=== PATIENT | male | born 1970 | race Two or more races ===

== ENCOUNTER 2017-11-18 10:04 | Outpatient (CLI) | payer OTHER ==
--- NOTE | 2017-11-18 15:15 | MRI Report ---
EXAM: LEFT KNEE MRI WITHOUT CONTRAST EXAM DATE: 11/18/2017 10:46 AM. CLINICAL HISTORY: Unilateral posttraumatic osteoarthritis. COMPARISON: None. TECHNIQUE: Multiplanar, multisequence T1-weighted and fluid-sensitive sequences of the knee without c ontrast. Other: None. FINDINGS: Bones: No fractures or subluxations. No marrow edema. No bone lesions. Articular Cartilage: Multifocal areas of grade 3-4 chondromalacia primarily at the weightbearing aspe ct of the medial tibial plateau. Some undermining flaps are also identified. Series 501 image 21. There is also some grade 2-3 chondromalacia at the medial patellar facet and also at the patellar ape x. Some grade 3 chondromalacia central weightbearing aspect of the lateral tibial plateau. Medial Meniscus: The medial meniscus is intact. Lateral Meniscus: The lateral meniscus is intact. Cruciate Ligaments: The anterior and posterior cruciate ligaments are intact. Collateral Ligaments: The medial collateral and lateral collateral ligamentous structures are intact. Tendons: The quadriceps, patellar, semimembranosus, and popliteus tendons are unremarkable. Musculature: No edema or fatty atrophy. Other: No effusion. No popliteal cyst. No loose bodies. The medial and lateral retinacula are intact. Significant edema in Hoffa's fat pad.. IMPRESSION: 1. Multifocal areas of grade 3-4 chondromalacia at the weightbearing aspect of the medial tibial plat eau with some underlying articular cartilaginous flaps. Also noted is some grade 2-3 chondromalacia a t the medial patellar facet and patellar apex. Grade 3 chondromalacia at the weightbearing aspect of the lateral tibial plateau. 2. Menisci, cruciates and collaterals appear unremarkable. 3. Some edema in Hoffa's fat pad. [facility] MUSCULOSKE[facility] SECTION Referring Provider Line: [phone] SITE ID: [id number]
== END 2017-11-18 10:05 | disposition home or self-care (01) ==
LOC: DI 10:04
PROVIDERS: ATTEND Orthopaedic Surgery
DX: M94.262 Chondromalacia, left knee (principal)

== ENCOUNTER 2018-02-10 08:00 | Outpatient (CLI) | payer MEDICAID, OTHER ==
[2018-02-10 19:18] LABS: BASOPHILS % (AUTO) 0.5 %; EOSINOPHILS # (AUTO) 0.1 10^3/uL (0.0-0.7); EOSINOPHILS % (AUTO) 1.2 %; HGB - HEMOGLOBIN 13.1 g/dL (14.0-18.0); LYMPHOCYTES % (AUTO) 23.3 %; MEAN CORPUSCULAR HEMOGLOBIN 28.9 pg (27.0-31.0); MEAN CORPUSCULAR HGB CONC 32.4 g/dL (32.0-36.0); MEAN PLATELET VOLUME 9.1 fL (7.4-11.4); MONOCYTES # (AUTO) 0.6 10^3/uL (0.0-1.0); MONOCYTES % (AUTO) 6.4 %; NEUTROPHILS # (AUTO) 5.9 10^3/uL (1.5-6.6); NEUTROPHILS % (AUTO) 68.6 %; PLT - PLATELET COUNT 360 10^3/uL (130-450); RED BLOOD COUNT 4.53 10^6/uL (4.70-6.10); RED CELL DISTRIBUTION WIDTH 13.7 % (12.0-15.0); WHITE BLOOD COUNT 8.6 x10^3/uL (4.8-10.8)
[2018-02-10 19:29] LABS: CREATININE,URINE 60.1 mg/dL; MICROALBUM/CREATININE RATIO,UR 194.7 ug/mg (<30.0); MICROALBUMIN,URINE 11.7 mg/dL (0-300.0)
[2018-02-10 19:33] LABS: HB2 TOTAL 14.6 g/dL; HEMOGLOBIN A1C 1.6 g/dL; HEMOGLOBIN A1C % 12.2 % (4.6-6.2)
[2018-02-10 19:34] LABS: ALBUMIN 4.2 g/dL (3.2-5.5); ALBUMIN/GLOBULIN RATIO 1.3 (1.0-2.2); BILIRUBIN,TOTAL 0.4 mg/dL (0.2-1.0); CREATININE 0.8 mg/dL (0.6-1.2); TOTAL PROTEIN 7.4 g/dL (6.7-8.2)
== END 2018-02-10 08:01 | disposition home or self-care (01) ==
LOC: LAB.N 08:00
PROVIDERS: ATTEND Specialist
DX: E11.65 Type 2 diabetes mellitus with hyperglycemia (principal); I10 Essential (primary) hypertension
CPT/HCPCS: 36415; 80053; 82043; 82570; 83036; 85025

== ENCOUNTER 2018-06-21 15:42 | Emergency (ER) | payer MEDICAID, OTHER ==
[2018-06-21] MEDS ORDERED: DEXAMETHASONE 10 MG/ML VIAL PO STA (16:08)
--- NOTE | 2018-06-21 16:17 | ED Physician Documentation ---
PD HPI CHEST PAIN - Stated complaint Stated Complaint: LT SIDE CHEST/BACK PX - Chief complaint Chief Complaint: Cardiac - History obtained from History obtained from: Patient - History of Present Illness Timing - onset: How many weeks ago (2) Timing - onset during: Rest Timing - duration: Weeks (2) Timing - details: Gradual onset, Still present Quality: Sharp, Pain Location: Left chest Radiation: Back Improved by: Rest Worsened by: Inspiration, Movement, Palpation, Position Associated symptoms: No: Shortness of air, Diaphoresis, Nausea, Vomiting, Feeling faint / dizzy, General Weakness, Palpitations Similar symptoms before: Has not had sx before Recently seen: Other - Additional information Additional information: 47-year-old male with a history of hypertension and diabetes has developed left- sided chest pain. He has had this for about 2 weeks and he has been into see his chiropractor and he appears to have a rib out of place. The patient has chest wall tenderness that reproduces the pain he is having he is having pain radiating from the front to the back and from the back to the front. The patient devout denies diaphoresis or dyspnea associated with this. 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 He states the cart had some problems with his wheels was very difficult to maneuver into position. He has since fix this. He has been doing this for several weeks. He also has a 9-year-old Down syndrome child who we have will frequently have to wrestle to control him. Review of Systems Constitutional: denies: Fever Eyes: denies: Decreased vision Ears: denies: Ear pain Nose: denies: Rhinorrhea / runny nose, Congestion Throat: denies: Sore throat Cardiac: denies: Chest pain / pressure, Palpitations Respiratory: denies: Dyspnea, Cough GI: denies: Abdominal Pain, Nausea, Vomiting : denies: Dysuria, Frequency Skin: denies: Rash Musculoskeletal: reports: Back pain. denies: Neck pain, Extremity pain Neurologic: denies: Generalized weakness, Focal weakness, Numbness PD PAST MEDICAL HISTORY - Past Medical History Cardiovascular: Hypertension, High cholesterol Respiratory: None Endocrine/Autoimmune: Type 2 diabetes HEENT: Other Musculoskeletal: Osteoarthritis, Chronic back pain - Past Surgical History Ortho: ACL reconstruction, Shoulder arthroplasty - Present Medications Home Medications: Ambulatory Orders Medication Instructions Recorded Confirmed Lisinopril 10 mg PO DAILY 06/25/16 06/25/16 Aspirin Chewable [St Alex 06/21/18 06/21/18 Aspirin] Metformin HCl [Metformin HCl] 06/21/18 Tramadol HCl 50 - 100 mg PO Q8HR PRN #20 tablet 06/21/18 - Allergies Allergies/Adverse Reactions: Allergies Allergy/AdvReac Type Severity Reaction Status Date / Time No Known Drug Allergies Allergy Verified 06/21/18 16:10 - Social History Does the pt smoke?: No Smoking Status: Never smoker Does the pt drink ETOH?: Yes Does the pt have substance abuse?: No PD ED PE NORMAL - Vitals Vital signs reviewed: Yes (hypertensive marked) - General General: Alert and oriented X 3, No acute distress, Well developed/nourished - HEENT HEENT: Atraumatic, PERRL, EOMI - Neck Neck: Supple, no meningeal sign, No bony TTP - Cardiac Cardiac: RRR, No murmur - Respiratory Respiratory: No respiratory distress, Clear bilaterally, Other (There is point tenderness to the chest wall posteriorly laterally and anteriorly that reproduces the symptoms the patient is having. ) - Abdomen Abdomen: Soft, Non tender - Back Back: No CVA TTP, No spinal TTP - Derm Derm: Normal color, Warm and dry, No rash - Extremities Extremities: No deformity, No edema - Neuro Neuro: Alert and oriented X 3, wooden fence erector 2-12 intact, No motor deficit, No sensory deficit, Normal speech Eye Opening: Spontaneous Motor: Obeys Commands Verbal: Oriented GCS Score: 15 - Psych Psych: Normal mood, Normal affect Results - Vitals Vitals: Vital Signs - 24 hr 06/21/18 15:47 Temperature 37.0 C Heart Rate 94 Respiratory 20 Rate Blood Pressure 196/110 H O2 Saturation 99 Oxygen O2 Source Room air - EKG (time done) 1552 Rate: Rate (enter#) (86) Rhythm: NSR Ischemia: Normal ST segments, Q waves (inferior) Compare to prior EKG: Old EKG unavailable Computer interpretation: Agree with computer - Labs Labs: Laboratory Tests 06/21/18 06/21/18 06/21/18 16:15 16:15 16:15 WBC 8.4 RBC 4.08 L Hgb 12.3 L Hct 36.2 L MCV 88.5 MCH 30.0 MCHC 33.9 RDW 12.9 Plt Count 352 MPV 7.9 Neut # (Auto) 5.1 Lymph # (Auto) 2.3 [place] # (Auto) 0.6 Eos # (Auto) 0.2 Baso # (Auto) 0.1 Absolute Nucleated RBC 0.00 Nucleated RBC % 0.0 Sodium 133 L Potassium 3.6 Chloride 98 L Carbon Dioxide 29 Anion Gap 6.0 BUN 23 H Creatinine 0.9 Estimated GFR (MDRD) 90 Glucose 244 H Calcium 8.7 Total Bilirubin 0.3 AST 16 ALT 15 Alkaline Phosphatase 114 Troponin I < 0.04 Total Protein 7.4 Albumin 4.0 Globulin 3.4 Albumin/Globulin Ratio 1.2 Lipase 37 - Rads (name of study) 2 veiw chest Radiology: Prelim report reviewed (Impression: 1. No acute disease in the chest.), EMP read indepedently, See rad report PD MEDICAL DECISION MAKING - ED course Complexity details: reviewed results, re-evaluated patient, considered differential, d/w patient ED course: 47 y/o male with left sided chest wall pain is given dexamethasone and he is expected to improve. - Sepsis Event Vital Signs: Vital Signs - 24 hr 06/21/18 15:47 Temperature 37.0 C Heart Rate 94 Respiratory 20 Rate Blood Pressure 196/110 H O2 Saturation 99 Oxygen O2 Source Room air Departure - Departure Disposition: 01 Home, Self Care Clinical Impression: Strain of chest wall Qualifiers: Encounter type: initial encounter Qualified Code(s): S29.011A - Strain of muscle and tendon of front wall of thorax, initial encounter Condition: Stable Instructions: ED Strain Chest Wall Ch Follow-Up: BRENDA BREWER [Primary Care Provider] - Prescriptions: Tramadol HCl 50 - 100 mg PO Q8HR PRN #20 tablet PRN Reason: Pain
[2018-06-21 16:22] LABS: BASOPHILS # (AUTO) 0.1 10^3/uL (0.0-0.1); BASOPHILS % (AUTO) 0.8 %; EOSINOPHILS # (AUTO) 0.2 10^3/uL (0.0-0.7); EOSINOPHILS % (AUTO) 2.9 %; HGB - HEMOGLOBIN 12.3 g/dL (14.0-18.0); LYMPHOCYTES # (AUTO) 2.3 10^3/uL (1.5-3.5); LYMPHOCYTES % (AUTO) 27.9 %; MEAN CORPUSCULAR HGB CONC 33.9 g/dL (32.0-36.0); MEAN CORPUSCULAR VOLUME 88.5 fL (80.0-94.0); MEAN PLATELET VOLUME 7.9 fL (7.4-11.4); MONOCYTES # (AUTO) 0.6 10^3/uL (0.0-1.0); MONOCYTES % (AUTO) 7.1 %; NEUTROPHILS # (AUTO) 5.1 10^3/uL (1.5-6.6); NEUTROPHILS % (AUTO) 61.3 %; PLT - PLATELET COUNT 352 10^3/uL (130-450); RED BLOOD COUNT 4.08 10^6/uL (4.70-6.10); RED CELL DISTRIBUTION WIDTH 12.9 % (12.0-15.0); WHITE BLOOD COUNT 8.4 x10^3/uL (4.8-10.8)
[2018-06-21 16:34] LABS: ALBUMIN/GLOBULIN RATIO 1.2 (1.0-2.2); BILIRUBIN,TOTAL 0.3 mg/dL (0.2-1.0); CALCIUM 8.7 mg/dL (8.5-10.3); CREATININE 0.9 mg/dL (0.6-1.2); TOTAL PROTEIN 7.4 g/dL (6.7-8.2)
--- NOTE | 2018-06-21 16:45 | XRAY Report ---
Reason: left sided chest pain Procedure Date: 06/21/2018 Accession Number: [id number] / [id number] Procedure: XR - Chest 2 View X-Ray CPT Code: 16576 FULL RESULT: EXAM: CHEST RADIOGRAPHY EXAM DATE: 06/21/2018 04:35 PM. CLINICAL HISTORY: Left-sided rib and back pain. Chest pain. COMPARISON: None. TECHNIQUE: 2 views. FINDINGS: Lungs/Pleura: No focal opacities evident. No pleural effusion. No pneumothorax. Normal volumes. Mediastinum: Heart size is normal. Aorta is mildly tortuous. Other: Degenerative changes of the thoracic spine. No acute osseous abnormalities. IMPRESSION: 1. No acute disease in the chest. [facility]
[2018-06-21 17:29] VITALS: BP 181/98
== END 2018-06-21 17:29 | disposition home or self-care (01) ==
LOC: ED 15:42
DX: S29.011A Strain of muscle and tendon of front wall of thorax, initial encounter (principal); I10 Essential (primary) hypertension; E11.9 Type 2 diabetes mellitus without complications; Z79.84 Long term (current) use of oral hypoglycemic drugs
CPT/HCPCS: 36415; 71046; 80053; 83690; 84484; 85025; 93005; 99283

== ENCOUNTER 2018-10-26 13:37 | Outpatient (CLI) | payer MEDICAID ==
--- NOTE | 2018-10-27 01:41 | XRAY Report ---
Reason: SCIATICA RIGHT SIDE, RADICULOPATHY, CERVICAL REGIO Procedure Date: 10/26/2018 Accession Number: [id number] / [id number] Procedure: XR - Cervical Spine Complete CPT Code: FULL RESULT: EXAM: CERVICAL SPINE RADIOGRAPHY EXAM DATE: 10/26/2018 03:19 PM. CLINICAL HISTORY: SCIATICA RIGHT SIDE, RADICULOPATHY, CERVICAL REGIO. COMPARISONS: None. TECHNIQUE: 5 views. FINDINGS: Alignment: Normal. No spondylolisthesis or scoliosis. Bones: The cervical vertebral bodies and posterior elements are well-visualized from the skull base through C7-T1. No fractures or bone lesions. Disks: Mild degenerative disk disease. Facets: Mild facet arthropathy. Neural Foramina: Mild right osseous neural foraminal narrowing at C5-6. Soft Tissues: Normal. No prevertebral soft tissue swelling. The visualized lung apices are clear. IMPRESSION: Mild degenerative changes. [facility]
--- NOTE | 2018-10-27 01:45 | XRAY Report ---
Reason: SCIATICA RIGHT SIDE, RADICULOPATHY, CERVICAL REGIO Procedure Date: 10/26/2018 Accession Number: [id number] / [id number] Procedure: XR - Lumbar Spine 2 View CPT Code: FULL RESULT: EXAM: LUMBOSACRAL SPINE RADIOGRAPHY EXAM DATE: 10/26/2018 03:26 PM. CLINICAL HISTORY: SCIATICA RIGHT SIDE, RADICULOPATHY, CERVICAL REGIO. COMPARISONS: None. TECHNIQUE: 3 views. FINDINGS: Alignment: Mild degenerative dextroscoliosis. Bones: Five [id number] lumbar vertebral bodies are present. No fractures or bone lesions. Disks: Mild degenerative disk disease. Facets: Moderate facet arthropathy. Sacroiliac Joints: Unremarkable. Soft Tissues: Normal. The visualized bowel gas pattern is normal. IMPRESSION: Degenerative changes. No evidence of acute fracture. [facility]
== END 2018-10-26 13:38 | disposition home or self-care (01) ==
LOC: DI 13:37
PROVIDERS: ATTEND Family Medicine
DX: M51.17 Intervertebral disc disorders with radiculopathy, lumbosacral region (principal); M41.86 Other forms of scoliosis, lumbar region; M50.10 Cervical disc disorder with radiculopathy, unspecified cervical region; M50.00 Cervical disc disorder with myelopathy, unspecified cervical region
CPT/HCPCS: 72050; 72100

== ENCOUNTER 2019-09-01 12:35 | Outpatient (CLI) | payer MEDICAID | END 2019-09-01 12:36 | disposition critical access hospital (66) | LOC: EMS 12:35 | PROVIDERS: ATTEND Surgery | DX: I10 Essential (primary) hypertension (principal); H53.2 Diplopia; R73.09 Other abnormal glucose | CPT/HCPCS: A0425; A0429; A0999 ==

== ENCOUNTER 2019-09-01 12:52 | Emergency (ER) | payer MEDICAID ==
--- NOTE | 2019-09-01 13:01 | ED Physician Documentation ---
History of Present Illness - Stated complaint Stated Complaint: HIGH BLOOD PRESSURE - Additonal information Additional information: This is a 48-year-old male with a history of hypertension, Diabetes, who was sent in from his primary care's office for hypertension high blood sugar and double vision. Patient is typically on metformin and hydrochlorothiazide, he states that he took a 1 month prescription and is try to stretch out for over 4 months. He is only taking his blood pressure medications and metformin when he is feeling poorly oriented starts to develop symptoms such as blurry vision or headache. He went in to see his primary care today is found to have a blood sugar over 400, hypertension over 200 systolic, is complaining of some blurry vision. Patient states of her last week when he looks to the right he has some double vision. When he looks the left his vision seems normal to him. Denies any change in visual acuity. He states this happened before and resolved spontaneously once he got his blood sugar and high blood pressure under control. He denies any weakness, numbness, slurred speech, confusion. Review of Systems Constitutional: denies: Fever Eyes: reports: Other (Vision change) Ears: denies: Loss of hearing Nose: denies: Rhinorrhea / runny nose Cardiac: denies: Chest pain / pressure Respiratory: denies: Dyspnea GI: denies: Abdominal Pain : denies: Dysuria Skin: denies: Rash PD PAST MEDICAL HISTORY - Past Medical History Cardiovascular: Hypertension, High cholesterol Respiratory: None Endocrine/Autoimmune: Type 2 diabetes HEENT: Other Musculoskeletal: Osteoarthritis, Chronic back pain - Past Surgical History Ortho: ACL reconstruction, Shoulder arthroplasty - Present Medications Home Medications: Ambulatory Orders Medication Instructions Recorded Confirmed Aspirin Chewable [St Alex 81 mg DAILY 06/21/18 09/01/19 Aspirin] Metformin HCl 1,000 mg BID 06/21/18 09/01/19 Acetaminophen/Cod 300/30 [Tylenol 1 tab Q6H PRN 09/01/19 09/01/19 #3] Blood Sugar Diagnostic [Glucometer 1 each MC TID #30 strip 09/01/19 Strips] Blood-Glucose Meter [Glucometer] 1 each MC DAILY #1 each 09/01/19 Gabapentin 600 mg PO TID 09/01/19 09/01/19 Hydrochlorothiazide 12.5 mg DAILY 09/01/19 09/01/19 Hydrochlorothiazide 25 mg PO DAILY #30 tablet 09/01/19 Insulin Glargine [Lantus Solostar] 20 unit SQ DAILY #1 pen 09/01/19 Losartan [Cozaar] 50 mg PO DAILY #30 tablet 09/01/19 metFORMIN [Glucophage] 500 mg PO BIDWM #60 tablet 09/01/19 - Allergies Allergies/Adverse Reactions: Allergies Allergy/AdvReac Type Severity Reaction Status Date / Time No Known Drug Allergies Allergy Verified 09/01/19 13:10 - Social History Does the pt smoke?: No Smoking Status: Never smoker Does the pt drink ETOH?: Yes Does the pt have substance abuse?: No PD ED PE NORMAL - Vitals Vital signs reviewed: Yes - General General: Alert and oriented X 3, No acute distress - HEENT HEENT: PERRL - Neck Neck: Supple, no meningeal sign - Cardiac Cardiac: RRR, No murmur - Respiratory Respiratory: No respiratory distress, Clear bilaterally - Abdomen Abdomen: Normal bowel sounds, Soft, Non tender, Non distended - Derm Derm: Warm and dry - Extremities Extremities: No deformity - Neuro Neuro: Alert and oriented X 3, No sensory deficit, Normal speech, Other (With rightward gaze patient has slightly limited lateral gaze of the right eye. Left eye has normal EOM. He has normal and symmetric eye movements with both eyes when looking to the left up-and-down. Face is symmetric with smile and eye closing, sensation intact light touch over the entire face. Tongue protrudes in the midline. Hearing is symmetric with finger rub. Shoulder shrug is equal strength bilaterally. Strength is 5 out of 5 with hand squeeze, elbow flexion extension shoulder abduction, knee extension and flexion, ankle dorsiflexion and plantarflexion. No dysmetria.) - Psych Psych: Normal mood, Normal affect Results - Vitals Vitals: Oxygen O2 Source Room air - Labs Labs: Laboratory Tests 09/01/19 09/01/19 13:52 13:52 WBC 9.0 RBC 4.63 L Hgb 13.6 L Hct 41.2 L MCV 89.0 MCH 29.4 MCHC 33.0 RDW 13.2 Plt Count 335 MPV 10.6 Neut # (Auto) 6.0 Lymph # (Auto) 2.1 [place] # (Auto) 0.7 Eos # (Auto) 0.1 Baso # (Auto) 0.1 Absolute Nucleated RBC 0.00 Nucleated RBC % 0.0 Sodium 132 L Potassium 3.8 Chloride 97 L Carbon Dioxide 28 Anion Gap 7.0 BUN 16 Creatinine 0.8 Estimated GFR (MDRD) 103 Glucose 366 H Calcium 9.0 Total Bilirubin 0.6 AST 20 ALT 22 Alkaline Phosphatase 139 H Total Protein 8.5 H Albumin 4.2 Globulin 4.3 H Albumin/Globulin Ratio 1.0 Lipase 33 PD MEDICAL DECISION MAKING - ED course ED course: Pt has an isolated abducens palsy, likely caused by his HTN and DM, which are very poorly controlled. No other neuro findings or symptoms. His palsy symptoms have been present for a week. I discussed that if this does not improve or if her has ANY other neuro symptoms he needs to return to the ED for head imaging. It sounds like he has actually had this in the past and it spontaneously resolved. Regarding his HTN, he is asymptomatic with no chest pain, shortness of breath. He was given lisinopril here and his BP downtrended to <200 systolic on my recheck prior to discharge. Given he is asymptomatic Further aggressive dropping of his BP in the ED is not indicated. Labs show elevated BG in the 300s, no anion gap, normal bicarb. I spoke with Dr. Ji, discussed the patient's labs and the plan of care, for outpatient management he recommends 20 units of Lantus daily subcutaneously, metformin 500 mg twice daily, losartan 50 mg daily, and his current dose of hydrochlorothiazide. He would like the patient to be seen in his office and 24 to 48 hours for a recheck. These medications were prescribed and plan of care reviewed and patient was discharged home. Departure - Departure Disposition: Home, Self Care Clinical Impression: Abducens nerve palsy Qualifiers: Laterality: right Qualified Code(s): H49.21 - Sixth [abducent] nerve palsy, right eye Diabetes Qualifiers: Diabetes mellitus type: type 2 Diabetes mellitus terminal operations supervisor insulin use: without terminal operations supervisor use Diabetes mellitus complication status: with other specified complication Qualified Code(s): E11.69 - Type 2 diabetes mellitus with other specified complication Condition: Good Follow-Up: Reji Ji [Primary Care Provider] - (Within 48 hours) Prescriptions: Blood Sugar Diagnostic [Glucometer Strips] 1 each TID #30 strip Blood-Glucose Meter [Glucometer] 1 each DAILY #1 each Hydrochlorothiazide 25 mg PO DAILY #30 tablet Insulin Glargine [Lantus Solostar] 20 unit SQ DAILY #1 pen Losartan [Cozaar] 50 mg PO DAILY #30 tablet metFORMIN [Glucophage] 500 mg PO BIDWM #60 tablet Comments: Your blood pressure and blood sugar are quite high today, these need to be controlled or you are likely to have severe health problems in the future. I spoke with your doctor and would like you to start long-acting insulin 20 units daily. Please measure your blood sugar at least 3 times a day, and log these values. This will help your doctor adjust doses of your medications going forward. You should also take the metformin 500 mg twice daily, and the losartan for blood pressure daily in addition to your hydrochlorothiazide. Please follow-up with your primary care provider or another health care provider in their office in the next 1 to 2 days, Dr. Ji is expecting this. You do have some paralysis of 1 of the muscles on your right eye (an abducens palsy), which is likely due to the diabetes and high blood pressure, if this is not improving over the next several months you will likely need an MRI. If you develop any other concerning symptoms such as numbness weakness, more vision changes, speech changes, you need to return to the emergency department immediately for more testing. Discharge Date/Time: 09/01/19 17:00
[2019-09-01] MEDS ORDERED: LISINOPRIL 5 MG TABLET PO STA (13:41)
[2019-09-01 14:05] LABS: BASOPHILS # (AUTO) 0.1 10^3/uL (0.0-0.1); EOSINOPHILS # (AUTO) 0.1 10^3/uL (0.0-0.7); EOSINOPHILS % (AUTO) 1.6 %; HGB - HEMOGLOBIN 13.6 g/dL (14.0-18.0); LYMPHOCYTES # (AUTO) 2.1 10^3/uL (1.5-3.5); LYMPHOCYTES % (AUTO) 23.3 %; MEAN CORPUSCULAR HEMOGLOBIN 29.4 pg (27.0-31.0); MEAN PLATELET VOLUME 10.6 fL (7.4-11.4); MONOCYTES # (AUTO) 0.7 10^3/uL (0.0-1.0); MONOCYTES % (AUTO) 7.2 %; NEUTROPHILS % (AUTO) 66.5 %; PLT - PLATELET COUNT 335 10^3/uL (130-450); RED BLOOD COUNT 4.63 10^6/uL (4.70-6.10); RED CELL DISTRIBUTION WIDTH 13.2 % (12.0-15.0)
[2019-09-01 14:30] LABS: CREATININE 0.8 mg/dL (0.6-1.2)
[2019-09-01 14:31] LABS: BILIRUBIN,TOTAL 0.6 mg/dL (0.2-1.0)
[2019-09-01 14:32] LABS: ALBUMIN 4.2 g/dL (3.2-5.5); TOTAL PROTEIN 8.5 g/dL (6.7-8.2)
[2019-09-01 16:15] VITALS: BP 213/114
== END 2019-09-01 17:00 | disposition home or self-care (01) ==
LOC: EDUNIT# → ED 12:52
DX: E11.65 Type 2 diabetes mellitus with hyperglycemia (principal); I10 Essential (primary) hypertension; H49.21 Sixth [abducent] nerve palsy, right eye; Z79.84 Long term (current) use of oral hypoglycemic drugs; Z79.82 Long term (current) use of aspirin; Z91.14 Patient's other noncompliance with medication regimen
CPT/HCPCS: 36415; 80053; 83690; 85025; 99283; A9270

== ENCOUNTER 2021-10-18 01:09 | Outpatient (CLI) | payer MEDICAID | END 2021-10-18 01:10 | disposition EMS.NT | LOC: EMS 01:09 | DX: U07.1 COVID-19 (principal); E11.9 Type 2 diabetes mellitus without complications; Z79.4 Long term (current) use of insulin ==